=== PATIENT | male | born 1990 ===

== ENCOUNTER 2020-12-22 12:41 | Outpatient (CLI) | payer OTHER ==
--- NOTE | 2020-12-22 15:29 | MRI Report ---
PROCEDURE: Arthrogram Shoulder LT INDICATIONS: PAIN IN LEFT SHOULDER CONTRAST: Intra-articular dilute gadolinium TECHNIQUE: After the administration of 12 mL of dilute intra-articular Gadolinium contrast, oblique coronal T1 a nd T2 spin echo with fat saturation, oblique sagittal T1 spin echo with and without fat saturation, o blique sagittal T2 fast spin echo with fat saturation, axial T1 spin echo with fat saturation through the shoulder. COMPARISON: None. FINDINGS: Image quality: Excellent. Rotator cuff: The supraspinatus, infraspinatus, and subscapularis tendons appear intact throughout. No rotator cuff muscle atrophy on sagittal images. Bones and bursae: No bone marrow contusions or fractures. Mild acromioclavicular joint degeneration. The acromion demonstrates conventional anatomy, without an os acromiale. Capsule and soft tissues: The labrum and glenohumeral ligaments appear intact. The long head of the biceps tendon demonstrates normal location and morphology. The rotator interval appears normal, wit hout fibrosis. The coracohumeral ligament is of normal thickness. No intra-articular bodies. IMPRESSION: 1. No rotator cuff tear. 2. Negative evaluation of the labrum. Reviewed by: Gloria Rain MD on 12/22/2020 3:28 PM PDT Approved by: Gloria Rain MD on 12/22/2020 3:28 PM PDT Station ID: [id number]
--- NOTE | 2020-12-22 15:50 | XRAY Report ---
PROCEDURE: Arthrogram Needle Placement INDICATIONS: PAIN IN LEFT SHOULDER CONTRAST: CONTRAST: CONRAY 6ML/ GA FLUOROSCOPY TIME: FLUORO TIME: 0.2 min and NUMBER IMAGES: 2 TECHNIQUE: The indications, alternatives, benefits, risks, and complications of the procedure were explained to the patient. Written informed consent was obtained and placed in the chart. The shoulder was examin ed fluoroscopically and a site for needle placement chosen for entry into the glenohumeral joint from an anterior approach. The skin was prepped and draped in the usual fashion, and 1% lidocaine infilt rated from skin down to joint capsule. A spinal needle was inserted into the glenohumeral joint, and a small amount of iodinated contrast media injected to confirm intra-articular placement of the need le tip. This was followed by approximately 12 mL dilute solution of a gadolinium containing MR contr ast agent. The needle was removed and a dressing was applied. The patient was given postprocedural instructions and sent to the MR suite for MR imaging. FINDINGS: A single fluoroscopic spot image demonstrates intra-articular location of injected iodinated contrast . IMPRESSION: Successful fluoroscopically guided administration of dilute Gadolinium solution into the shoulder sophie mir for MR arthrogram. Reviewed by: Wanda Holland MD on 12/22/2020 3:48 PM PDT Approved by: Wanda Holland MD on 12/22/2020 3:48 PM PDT Station ID: [id number]
== END 2020-12-22 12:42 | disposition home or self-care (01) ==
LOC: DI 12:41
DX: M25.512 Pain in left shoulder (principal)
CPT/HCPCS: 23350; 73222; 77002; A9585; Q9961